=== PATIENT | male | born 1970 | race Asian ===

== ENCOUNTER 2018-05-09 13:19 | Inpatient (IN) | payer SELFPAY ==
[~2018-05-09] VITALS: Ht 170.2 cm; Wt 81.6 kg
[2018-05-09] MEDS ORDERED: MULTIVIT INFUSN,ADULT 4,VIT K 10 ML, THIAMINE INJ 100 MG, FOLIC ACID INJ 1 MG in IV NOR... IV ONE (15:00)
[2018-05-09] MEDS ORDERED: chlordiazePOXIDE HCL 25 MG CAPSULE PO ONE (15:00)
[2018-05-09 15:13] LABS: BASO % 1 % (0-3); EOS % 1 % (0-3); HEMATOCRIT 50.7 % (39.0-53.0); HEMOGLOBIN 17.8 g/dL (13.0-17.5); LYMPH # 0.9 x10^3/uL (1.0-4.8); LYMPH % 25 % (24-48); MEAN CORPUSCULAR HEMOGLOBIN 35 pg (25-35); MEAN CORPUSCULAR HGB CONC 35 g/dL (31-37); MEAN CORPUSCULAR VOLUME 99 fL (79-100); MONO # 0.3 x10^3/uL (0.0-1.1); MONO % 9 % (0-9); NEUT # 2.4 x10^3uL (1.8-7.7); NEUT % 66 % (31-73); PLATELET COUNT 152 x10^3/uL (140-400); RED BLOOD COUNT 5.14 x10^6/uL (4.30-5.70); RED CELL DISTRIBUTION WIDTH 13.5 % (11.5-14.5); WHITE BLOOD COUNT 3.7 x10^3/uL (4.0-11.0)
[2018-05-09 15:20] LABS: CREATININE 0.8 mg/dL (0.7-1.3); GFR 103.2; POTASSIUM 3.4 mmol/L (3.5-5.1)
[2018-05-09 15:25] LABS: ALBUMIN 4.1 g/dL (3.4-5.0); TOTAL BILIRUBIN 1.3 mg/dL (0.2-1.0); TOTAL PROTEIN 8.3 g/dL (6.4-8.2)
[2018-05-09 15:30] LABS: BARBITURATES NEG (NEG); BENZODIAZEPINES NEG (NEG); CANNABINOIDS NEG (NEG); COCAINE NEG (NEG); METHADONE NEG (NEG); OPIATES NEG (NEG); PHENCYCLIDINE NEG (NEG)
[2018-05-09 15:31] LABS: BILIRUBIN,URINE NEGATIVE (NEG); CLARITY,URINE CLEAR; COLOR,URINE YELLOW; NITRITE,URINE NEGATIVE (NEG); PROTEIN,URINE NEGATIVE (NEG-TRACE); UROBILINOGEN,URINE 0.2 mg/dL (0.2 mg/dL)
[2018-05-09 15:32] LABS: AMPHETAMINE/METHAMPHETAMINE NEG (NEG)
[2018-05-09 15:42] LABS: BACTERIA,URINE 0 /HPF (0-FEW); RBC,URINE 0 /HPF (0-2); WBC,URINE 0 /HPF (0-4)
[2018-05-09] MEDS ORDERED: chlordiazePOXIDE HCL 25 MG CAPSULE PO PRN ×2 (16:30)
[2018-05-09] MEDS ORDERED: POTASSIUM CHLORIDE 20 MEQ TABLET.ER. PO ONE (16:30)
[2018-05-09] MEDS ORDERED: ONDANSETRON PF 4 MG/2 ML VIAL. IV PRN ×2 (16:30→17:30)
--- NOTE | 2018-05-09 17:28 | PDOC1 ---
History and Physical Date of Admission Date of Admission 05/09/18 Identification/Chief Complaint Chief Complaint tremors Source Source: Patient History of Present Illness History of Present Illness 47yo M, with HTN, comes for bl ext tremors. He lives in [place], [place], came to visit [facility] here and look for a job here. He drinks 2-3 shots of hard liquor daily, has bl ext tremor which is getting worse in the past 2 ds. last drink is yesterday. He felt hard to walk with the tremors and came to ER. no abd pain or N/V, no seizure. run out of HTN meds. Past Medical History Cardiovascular: HTN Past Surgical History Past Surgical History: No pertinent history Family History Family History: Hypertension Social History Smoke: <1 pack per day ALCOHOL: heavy Drugs: None Current Problem List Problem List Problems Medical Problems: (1) Alcohol withdrawal Status: Acute Current Medications Current Medications Current Medications Medications (Trade) Dose Ordered Sig/Slim Start Time Stop Time Status Last Admin Dose Admin Chlordiazepoxide (Librium) 100 mg PRN Q1HR PRN 05/09/18 16:30 Multivitamins 10 ml/Thiamine HCl 100 mg/Folic Acid 1 mg/Sodium Chloride 1,011.2 ml @ 100 mls/ hr DAILY 05/10/18 09:00 05/14/18 19:07 Ondansetron HCl (Zofran) 4 mg PRN Q8HRS PRN 05/09/18 16:30 05/10/18 16:29 Potassium Chloride (Klor-Con) 40 meq 1X ONCE 05/09/18 16:30 05/09/18 16:31 DC 05/09/18 16:49 40 MEQ Sodium Chloride 1,000 ml @ 125 mls/hr Q8H 05/09/18 16:20 05/10/18 16:19 Allergies Allergies Allergies Coded Allergies Type Severity Reaction Last Updated Verified No Known Drug Allergies 05/09/18 No ROS Review of System CONSTITUTIONAL: No fever or chills EYES: No recent changes SKIN: No rash or itching CARDIOVASCULAR: No chest pain, syncope, palpitations, or edema RESPIRATORY: No SOB or cough GASTROINTESTINAL: No nausea, vomiting or abdominal pain NEUROLOGICAL: No headaches or weakness ENDOCRINE: No cold or heat intolerance GENITOURINARY: No urgency or frequency of urination MUSCULOSKELETAL: No back pain or joint pain LYMPHATICS: No enlarged lymph nodes PSYCHIATRIC: No anxiety or depression Physical Exam Physical Exam GEN.: No apparent distress. Alert and oriented. mild anxious. HEENT: Head is normocephalic, atraumatic NECK: Supple. LUNGS: Clear to auscultation. HEART: RRR, S1, S2 present. Peripheral pulses intact ABDOMEN: Soft, nontender. Positive bowel sounds. EXTREMITIES: Without any cyanosis. bl fingers mild tremors. NEUROLOGIC: Normal speech, normal tone PSYCHIATRIC: Normal affect, normal mood. SKIN: No ulcerations Vitals Vitals Vital Signs Date Time Temp Pulse Resp B/P (MAP) Pulse Ox O2 Delivery O2 Flow Rate FiO2 05/09/18 16:25 92 154/90 (111) 96 Room Air 05/09/18 15:25 21 05/09/18 14:25 97.9 97.9 Labs Labs Laboratory Tests Test 05/09/18 14:50 05/09/18 15:15 05/09/18 16:44 White Blood Count 3.7 x10^3/uL (4.0-11.0) Red Blood Count 5.14 x10^6/uL (4.30-5.70) Hemoglobin 17.8 g/dL (13.0-17.5) Hematocrit 50.7 % (39.0-53.0) Mean Corpuscular Volume 99 fL (79-100) Mean Corpuscular Hemoglobin 35 pg (25-35) Mean Corpuscular Hemoglobin Concent 35 g/dL (31-37) Red Cell Distribution Width 13.5 % (11.5-14.5) Platelet Count 152 x10^3/uL (140-400) Neutrophils (%) (Auto) 66 % (31-73) Lymphocytes (%) (Auto) 25 % (24-48) Monocytes (%) (Auto) 9 % (0-9) Eosinophils (%) (Auto) 1 % (0-3) Basophils (%) (Auto) 1 % (0-3) Neutrophils # (Auto) 2.4 x10^3uL (1.8-7.7) Lymphocytes # (Auto) 0.9 x10^3/uL (1.0-4.8) Monocytes # (Auto) 0.3 x10^3/uL (0.0-1.1) Eosinophils # (Auto) 0.0 x10^3/uL (0.0-0.7) Basophils # (Auto) 0.0 x10^3/uL (0.0-0.2) Sodium Level 136 mmol/L (136-145) Potassium Level 3.4 mmol/L (3.5-5.1) Chloride Level 95 mmol/L (98-107) Carbon Dioxide Level 28 mmol/L (21-32) Anion Gap 13 (6-14) Blood Urea Nitrogen 5 mg/dL (8-26) Creatinine 0.8 mg/dL (0.7-1.3) Estimated GFR (Cockcroft-Gault) 103.2 BUN/Creatinine Ratio 6 (6-20) Glucose Level 139 mg/dL (70-99) Calcium Level 9.0 mg/dL (8.5-10.1) Total Bilirubin 1.3 mg/dL (0.2-1.0) Aspartate Amino Transf (AST/SGOT) 203 U/L (15-37) Alanine Aminotransferase (ALT/SGPT) 119 U/L (16-63) Alkaline Phosphatase 77 U/L (46-116) Total Protein 8.3 g/dL (6.4-8.2) Albumin 4.1 g/dL (3.4-5.0) Albumin/Globulin Ratio 1.0 (1.0-1.7) Ethyl Alcohol Level 44 mg/dL (0-10) Urine Collection Type Unknown Urine Color Yellow Urine Clarity Clear Urine pH 7.0 Urine Specific [place] <=1.005 Urine Protein Negative mg/dL (NEG-TRACE) Urine Glucose (UA) Negative mg/dL (NEG) Urine Ketones (Stick) Negative mg/dL (NEG) Urine Blood Negative (NEG) Urine Nitrite Negative (NEG) Urine Bilirubin Negative (NEG) Urine Urobilinogen Dipstick 0.2 mg/dL (0.2 mg/dL) Urine Leukocyte Esterase Negative (NEG) Urine RBC 0 /HPF (0-2) Urine WBC 0 /HPF (0-4) Urine Bacteria 0 /HPF (0-FEW) Urine Opiates Screen Neg (NEG) Urine Methadone Screen Neg (NEG) Urine Barbiturates Neg (NEG) Urine Phencyclidine Screen Neg (NEG) Urine Amphetamine/Methamphetamine Neg (NEG) Urine Benzodiazepines Screen Neg (NEG) Urine Cocaine Screen Neg (NEG) Urine Cannabinoids Screen Neg (NEG) Urine Ethyl Alcohol Pos (NEG) Ammonia 28 mcmol/L (11-34) Laboratory Tests Test 05/09/18 14:50 05/09/18 15:15 05/09/18 16:44 White Blood Count 3.7 x10^3/uL (4.0-11.0) Red Blood Count 5.14 x10^6/uL (4.30-5.70) Hemoglobin 17.8 g/dL (13.0-17.5) Hematocrit 50.7 % (39.0-53.0) Mean Corpuscular Volume 99 fL (79-100) Mean Corpuscular Hemoglobin 35 pg (25-35) Mean Corpuscular Hemoglobin Concent 35 g/dL (31-37) Red Cell Distribution Width 13.5 % (11.5-14.5) Platelet Count 152 x10^3/uL (140-400) Neutrophils (%) (Auto) 66 % (31-73) Lymphocytes (%) (Auto) 25 % (24-48) Monocytes (%) (Auto) 9 % (0-9) Eosinophils (%) (Auto) 1 % (0-3) Basophils (%) (Auto) 1 % (0-3) Neutrophils # (Auto) 2.4 x10^3uL (1.8-7.7) Lymphocytes # (Auto) 0.9 x10^3/uL (1.0-4.8) Monocytes # (Auto) 0.3 x10^3/uL (0.0-1.1) Eosinophils # (Auto) 0.0 x10^3/uL (0.0-0.7) Basophils # (Auto) 0.0 x10^3/uL (0.0-0.2) Sodium Level 136 mmol/L (136-145) Potassium Level 3.4 mmol/L (3.5-5.1) Chloride Level 95 mmol/L (98-107) Carbon Dioxide Level 28 mmol/L (21-32) Anion Gap 13 (6-14) Blood Urea Nitrogen 5 mg/dL (8-26) Creatinine 0.8 mg/dL (0.7-1.3) Estimated GFR (Cockcroft-Gault) 103.2 BUN/Creatinine Ratio 6 (6-20) Glucose Level 139 mg/dL (70-99) Calcium Level 9.0 mg/dL (8.5-10.1) Total Bilirubin 1.3 mg/dL (0.2-1.0) Aspartate Amino Transf (AST/SGOT) 203 U/L (15-37) Alanine Aminotransferase (ALT/SGPT) 119 U/L (16-63) Alkaline Phosphatase 77 U/L (46-116) Total Protein 8.3 g/dL (6.4-8.2) Albumin 4.1 g/dL (3.4-5.0) Albumin/Globulin Ratio 1.0 (1.0-1.7) Ethyl Alcohol Level 44 mg/dL (0-10) Urine Collection Type Unknown Urine Color Yellow Urine Clarity Clear Urine pH 7.0 Urine Specific [place] <=1.005 Urine Protein Negative mg/dL (NEG-TRACE) Urine Glucose (UA) Negative mg/dL (NEG) Urine Ketones (Stick) Negative mg/dL (NEG) Urine Blood Negative (NEG) Urine Nitrite Negative (NEG) Urine Bilirubin Negative (NEG) Urine Urobilinogen Dipstick 0.2 mg/dL (0.2 mg/dL) Urine Leukocyte Esterase Negative (NEG) Urine RBC 0 /HPF (0-2) Urine WBC 0 /HPF (0-4) Urine Bacteria 0 /HPF (0-FEW) Urine Opiates Screen Neg (NEG) Urine Methadone Screen Neg (NEG) Urine Barbiturates Neg (NEG) Urine Phencyclidine Screen Neg (NEG) Urine Amphetamine/Methamphetamine Neg (NEG) Urine Benzodiazepines Screen Neg (NEG) Urine Cocaine Screen Neg (NEG) Urine Cannabinoids Screen Neg (NEG) Urine Ethyl Alcohol Pos (NEG) Ammonia 28 mcmol/L (11-34) VTE Prophylaxis Ordered VTE Prophylaxis Devices: Yes VTE Pharmacological Prophylaxi: Yes Assessment/Plan Assessment/Plan alcoholism alcohol withdrawal with bl fingers tremors hypokalemia smoker ELEvated transaminitis with alcoholic hepatitis HTN accelerated plan: ivf, FA, VITB1 libirium 25mg q6h and prn, ativan prn replete K dvt ppx check Mag ABd US PTOT CASEY SINHA MD May 09, 2018 17:28
[2018-05-09] MEDS ORDERED: MORPHINE SULFATE 4 MG/ML VIAL. IV PRN (17:30)
[2018-05-09] MEDS ORDERED: DOCUSATE SODIUM 100 MG CAPSULE. PO PRN (17:30)
[2018-05-09] MEDS ORDERED: IV NORMAL SALINE 1000ML BAG 1,000 ML IV SCH (17:30)
[2018-05-09] MEDS ORDERED: ACETAMINOPHEN 325 MG TABLET. PO PRN (17:30)
[2018-05-09] MEDS ORDERED: hydrALAZINE 20 MG/ML VIAL. IVP PRN (17:30)
[2018-05-09] MEDS: chlordiazePOXIDE HCL 25 MG CAPSULE PO SCH ×2 (17:48→23:09)
[2018-05-09] MEDS: CARVEDILOL 6.25 MG TABLET. PO SCH (17:50)
[2018-05-09] MEDS: IV NORMAL SALINE 1000ML BAG 1,000 ML IV SCH ×2 (17:50→23:10)
--- NOTE | 2018-05-09 18:03 | NUR ---
The patient, ALEK OWUSU, 47 y/o, M admitted by CASEY SINHA MD, was given written information regarding hospital policies, unit procedures and contact persons. Valuables were checked and left with patient. pt with noticeable tremors in both arms/hands. pt states he stopped taking his librium a few days ago and quit drinking yesterday. claims to only drink 2-3 shots a day. oriented to room and call light. bed alarm on. IVF infusing. will monitor
[2018-05-09 19:00] VITALS: BP 154/99
--- NOTE | 2018-05-09 19:00 | PHYS DOC ---
Past Medical History Past Medical History: Anxiety, Depression, Other Additional Past Medical Histor: etoh Past Surgical History: No Surgical History Alcohol Use: Heavy Drug Use: None Adult General Chief Complaint Chief Complaint: TREMORS HPI HPI Patient is a 47 year old male who presents with tremors to his hands and feet 1 day. The patient states that he is a very heavy drinker. He states that he is trying to get off of alcohol. He states that his tremors have made it impossible to even hold a glass of water. He states that he has also had having anxiety and depression around his drinking. He is originally from [place] and states that he would like to go back to that area. He has been living with his brother in [facility] but has been unable to find a job here. He does not know if he has ever had seizure activity related to his detox but does have tremors within several hours of not drinking alcohol. He states that his last drink was yesterday. Review of Systems Review of Systems Constitutional: Denies fever or chills [] Eyes: Denies change in visual acuity, redness, or eye pain [] HENT: Denies nasal congestion or sore throat [] Respiratory: Denies cough or shortness of breath [] Cardiovascular: No additional information not addressed in HPI [] GI: Denies abdominal pain, nausea, vomiting, bloody stools or diarrhea [] : Denies dysuria or hematuria [] Musculoskeletal: See history of present illness Integument: Denies rash or skin lesions [] Neurologic: Denies headache, focal weakness or sensory changes [] Endocrine: Denies polyuria or polydipsia [] All other systems were reviewed and found to be within normal limits, except as documented in this note. Current Medications Current Medications Current Medications Medications (Trade) Dose Ordered Sig/Slim Start Time Stop Time Status Last Admin Dose Admin Chlordiazepoxide (Librium) 25 mg 1X ONCE 05/09/18 15:00 05/09/18 15:01 DC 05/09/18 15:00 25 MG Multivitamins 10 ml/Thiamine HCl 100 mg/Folic Acid 1 mg/Sodium Chloride 1,011.2 ml @ 1,000.088 mls/hr 1X ONCE 05/09/18 15:00 05/09/18 16:00 DC 05/09/18 15:00 1,000.088 MLS/HR Allergies Allergies Allergies Coded Allergies Type Severity Reaction Last Updated Verified No Known Drug Allergies 05/09/18 No Physical Exam Physical Exam Constitutional: Well developed, well nourished, no acute distress, non-toxic appearance. [] HENT: Normocephalic, atraumatic, bilateral external ears normal, oropharynx moist, no oral exudates, nose normal. [] Eyes: PERRLA, EOMI, conjunctiva normal, no discharge. [] Neck: Normal range of motion, no tenderness, supple, no stridor. [] Cardiovascular:Heart rate regular rhythm, no murmur [] Lungs & Thorax: Bilateral breath sounds clear to auscultation [] Abdomen: Bowel sounds normal, soft, no tenderness, no masses, no pulsatile masses. [] Skin: Warm, dry, no erythema, no rash. [] Back: No tenderness, no CVA tenderness. [] Extremities: No tenderness, no cyanosis, no clubbing, ROM intact, no edema, strong tremors present. [] Neurologic: Alert and oriented X 3, normal motor function, normal sensory function, no focal deficits noted. [] Psychologic: Affect normal, judgement normal, mood anxious and tearful. [] Current Patient Data Vital Signs Vital Signs Date Time Temp Pulse Resp B/P (MAP) Pulse Ox O2 Delivery O2 Flow Rate FiO2 05/09/18 15:25 98 21 156/94 (114) 96 Room Air 05/09/18 14:25 97.9 97.9 Lab Values Laboratory Tests Test 05/09/18 14:50 05/09/18 15:15 White Blood Count 3.7 x10^3/uL (4.0-11.0) L Red Blood Count 5.14 x10^6/uL (4.30-5.70) Hemoglobin 17.8 g/dL (13.0-17.5) H Hematocrit 50.7 % (39.0-53.0) Mean Corpuscular Volume 99 fL (79-100) Mean Corpuscular Hemoglobin 35 pg (25-35) Mean Corpuscular Hemoglobin Concent 35 g/dL (31-37) Red Cell Distribution Width 13.5 % (11.5-14.5) Platelet Count 152 x10^3/uL (140-400) Neutrophils (%) (Auto) 66 % (31-73) Lymphocytes (%) (Auto) 25 % (24-48) Monocytes (%) (Auto) 9 % (0-9) Eosinophils (%) (Auto) 1 % (0-3) Basophils (%) (Auto) 1 % (0-3) Neutrophils # (Auto) 2.4 x10^3uL (1.8-7.7) Lymphocytes # (Auto) 0.9 x10^3/uL (1.0-4.8) L Monocytes # (Auto) 0.3 x10^3/uL (0.0-1.1) Eosinophils # (Auto) 0.0 x10^3/uL (0.0-0.7) Basophils # (Auto) 0.0 x10^3/uL (0.0-0.2) Sodium Level 136 mmol/L (136-145) Potassium Level 3.4 mmol/L (3.5-5.1) L Chloride Level 95 mmol/L (98-107) L Carbon Dioxide Level 28 mmol/L (21-32) Anion Gap 13 (6-14) Blood Urea Nitrogen 5 mg/dL (8-26) L Creatinine 0.8 mg/dL (0.7-1.3) Estimated GFR (Cockcroft-Gault) 103.2 BUN/Creatinine Ratio 6 (6-20) Glucose Level 139 mg/dL (70-99) H Calcium Level 9.0 mg/dL (8.5-10.1) Total Bilirubin 1.3 mg/dL (0.2-1.0) H Aspartate Amino Transferase (AST) 203 U/L (15-37) H Alanine Aminotransferase (ALT) 119 U/L (16-63) H Alkaline Phosphatase 77 U/L (46-116) Total Protein 8.3 g/dL (6.4-8.2) H Albumin 4.1 g/dL (3.4-5.0) Albumin/Globulin Ratio 1.0 (1.0-1.7) Ethyl Alcohol Level 44 mg/dL (0-10) H Urine Collection Type Unknown Urine Color Yellow Urine Clarity Clear Urine pH 7.0 Urine Specific [place] <=1.005 Urine Protein Negative mg/dL (NEG-TRACE) Urine Glucose (UA) Negative mg/dL (NEG) Urine Ketones (Stick) Negative mg/dL (NEG) Urine Blood Negative (NEG) Urine Nitrite Negative (NEG) Urine Bilirubin Negative (NEG) Urine Urobilinogen Dipstick 0.2 mg/dL (0.2 mg/dL) Urine Leukocyte Esterase Negative (NEG) Urine RBC 0 /HPF (0-2) Urine WBC 0 /HPF (0-4) Urine Bacteria 0 /HPF (0-FEW) Urine Opiates Screen Neg (NEG) Urine Methadone Screen Neg (NEG) Urine Barbiturates Neg (NEG) Urine Phencyclidine Screen Neg (NEG) Urine Amphetamine/Methamphetamine Neg (NEG) Urine Benzodiazepines Screen Neg (NEG) Urine Cocaine Screen Neg (NEG) Urine Cannabinoids Screen Neg (NEG) Urine Ethyl Alcohol Pos (NEG) Laboratory Tests 05/09/18 14:50 Laboratory Tests 05/09/18 14:50 EKG EKG [] Radiology/Procedures Radiology/Procedures [] Course & Med Decision Making Course & Med Decision Making Pertinent Labs and Imaging studies reviewed. (See chart for details) []The patient was screened by the psychiatric assessment team. He would be on a waiting list for proximally 6-8 weeks to enter into alcohol rehabilitation in this area. He states that he would prefer to be admitted here for short-term withdrawal treatment and return to [place]. Dr. Gibson has accepted him to her service. Dragon Disclaimer Dragon Disclaimer This electronic medical record was generated, in whole or in part, using a voice recognition dictation system. Departure Departure Impression: Primary Impression: Alcohol withdrawal Disposition: ADMITTED INPATIENT Admitting Physician: Xie. Castillo Condition: CHEIKH ORTIZ APRN May 09, 2018 19:00
[2018-05-09] MEDS ORDERED: CHLO25CA9 PO (19:06)
[2018-05-09] MEDS ORDERED: MAGNESIUM SULFATE 2GM 50 ML IV ONE (19:30)
[2018-05-09] MEDS: traMADol 50 MG TABLET PO PRN (19:43)
[2018-05-09] MEDS: ENOXAPARIN 40 MG/0.4 ML SYRINGE. SQ SCH (20:46)
[2018-05-09 23:00] VITALS: BP 134/93
[2018-05-10 03:00] VITALS: BP 150/93
[2018-05-10] MEDS: chlordiazePOXIDE HCL 25 MG CAPSULE PO SCH ×3 (06:07→17:53)
[2018-05-10 07:40] VITALS: BP 145/100
[2018-05-10 07:49] LABS: CALCIUM 8.2 mg/dL (8.5-10.1); CREATININE 0.8 mg/dL (0.7-1.3); GFR 103.2; POTASSIUM 3.5 mmol/L (3.5-5.1)
[2018-05-10 08:04] LABS: ALBUMIN 3.6 g/dL (3.4-5.0); DIRECT BILIRUBIN 0.7 mg/dL (0.0-0.2); TOTAL BILIRUBIN 2.5 mg/dL (0.2-1.0); TOTAL PROTEIN 7.6 g/dL (6.4-8.2)
[2018-05-10 08:28] LABS: BASO % 2 % (0-3); EOS # 0.1 x10^3/uL (0.0-0.7); EOS % 4 % (0-3); HEMOGLOBIN 16.8 g/dL (13.0-17.5); LYMPH # 0.8 x10^3/uL (1.0-4.8); LYMPH % 30 % (24-48); MEAN CORPUSCULAR HEMOGLOBIN 35 pg (25-35); MEAN CORPUSCULAR HGB CONC 35 g/dL (31-37); MEAN CORPUSCULAR VOLUME 99 fL (79-100); MONO # 0.2 x10^3/uL (0.0-1.1); MONO % 8 % (0-9); NEUT # 1.6 x10^3uL (1.8-7.7); NEUT % 57 % (31-73); PLATELET COUNT 129 x10^3/uL (140-400); RED BLOOD COUNT 4.87 x10^6/uL (4.30-5.70); RED CELL DISTRIBUTION WIDTH 13.1 % (11.5-14.5); WHITE BLOOD COUNT 2.8 x10^3/uL (4.0-11.0)
--- NOTE | 2018-05-10 08:30 | RAD ---
CLINICAL HISTORY: HIGH LFTS, ETOH DETOX COMPARISON: None available. TECHNIQUE: Limited ultrasound examination of the right upper quadrant of the abdomen was performed FINDINGS: Liver: The liver measures 20.2 cm in length in the right mid clavicular line. . Hepatic margin is smooth. Increased echogenicity of the liver relative to the right kidney consistent with hepatic steatosis. There is no focal abnormality of the liver. Portal vein is grossly patent. Gallbladder/Biliary: The gallbladder is normal in appearance without evidence for cholelithiasis. There is no wall thickening or pericholecystic fluid. There is no pain with direct transducer pressure over the gallbladder.The common bile duct measures 0.5 cm. The right kidney measures 11.7 cm in bipolar length. No focal renal lesion or hydronephrosis. Normal renal cortical echogenicity. Visualized pancreas is unremarkable. Visualized aorta and IVC are also unremarkable. There is no free fluid in the subhepatic space. IMPRESSION: 1. Hepatomegaly and hepatic steatosis. 2. Gallbladder is unremarkable. Electronically signed by: Vinicio Melgar MD (05/10/2018 8:26 AM) [facility]
[2018-05-10] MEDS ORDERED: MULTIVIT INFUSN,ADULT 4,VIT K 10 ML, THIAMINE INJ 100 MG, FOLIC ACID INJ 1 MG in IV NOR... IV SCH (09:00)
[2018-05-10] MEDS: THIAMINE 100 MG TABLET. PO SCH (09:59)
[2018-05-10] MEDS: traMADol 50 MG TABLET PO PRN ×2 (09:59→17:55)
[2018-05-10] MEDS: CARVEDILOL 6.25 MG TABLET. PO SCH ×2 (09:59→17:53)
[2018-05-10] MEDS: FOLIC ACID 1 MG TABLET. PO SCH (10:00)
[2018-05-10] MEDS: IV NORMAL SALINE 1000ML BAG 1,000 ML IV SCH (10:03)
[2018-05-10 11:33] VITALS: BP 137/96
[2018-05-10 15:20] VITALS: BP 116/85
[2018-05-10 19:30] VITALS: BP 129/91
[2018-05-10] MEDS: ENOXAPARIN 40 MG/0.4 ML SYRINGE. SQ SCH (22:01)
--- NOTE | 2018-05-10 23:10 | PDOC ---
PROGRESS NOTES History of Present Illness History of Present Illness alcoholism alcohol withdrawal with bl fingers tremors hypokalemia smoker ELEvated transaminitis with alcoholic hepatitis HTN accelerated plan: ivf, FA, VITB1 libirium 25mg q6h and prn, ativan prn replete K dvt ppx improving Vitals Vitals Vital Signs Date Time Temp Pulse Resp B/P (MAP) Pulse Ox O2 Delivery O2 Flow Rate FiO2 05/10/18 19:50 Room Air 05/10/18 19:30 97.7 74 18 129/91 (104) 94 97.7 Labs LABS Laboratory Tests Test 05/10/18 06:58 White Blood Count 2.8 x10^3/uL (4.0-11.0) Red Blood Count 4.87 x10^6/uL (4.30-5.70) Hemoglobin 16.8 g/dL (13.0-17.5) Hematocrit 48.0 % (39.0-53.0) Mean Corpuscular Volume 99 fL (79-100) Mean Corpuscular Hemoglobin 35 pg (25-35) Mean Corpuscular Hemoglobin Concent 35 g/dL (31-37) Red Cell Distribution Width 13.1 % (11.5-14.5) Platelet Count 129 x10^3/uL (140-400) Neutrophils (%) (Auto) 57 % (31-73) Lymphocytes (%) (Auto) 30 % (24-48) Monocytes (%) (Auto) 8 % (0-9) Eosinophils (%) (Auto) 4 % (0-3) Basophils (%) (Auto) 2 % (0-3) Neutrophils # (Auto) 1.6 x10^3uL (1.8-7.7) Lymphocytes # (Auto) 0.8 x10^3/uL (1.0-4.8) Monocytes # (Auto) 0.2 x10^3/uL (0.0-1.1) Eosinophils # (Auto) 0.1 x10^3/uL (0.0-0.7) Basophils # (Auto) 0.0 x10^3/uL (0.0-0.2) Sodium Level 135 mmol/L (136-145) Potassium Level 3.5 mmol/L (3.5-5.1) Chloride Level 98 mmol/L (98-107) Carbon Dioxide Level 29 mmol/L (21-32) Anion Gap 8 (6-14) Blood Urea Nitrogen 5 mg/dL (8-26) Creatinine 0.8 mg/dL (0.7-1.3) Estimated GFR (Cockcroft-Gault) 103.2 Glucose Level 105 mg/dL (70-99) Calcium Level 8.2 mg/dL (8.5-10.1) Total Bilirubin 2.5 mg/dL (0.2-1.0) Direct Bilirubin 0.7 mg/dL (0.0-0.2) Aspartate Amino Transf (AST/SGOT) 185 U/L (15-37) Alanine Aminotransferase (ALT/SGPT) 112 U/L (16-63) Alkaline Phosphatase 75 U/L (46-116) Total Protein 7.6 g/dL (6.4-8.2) Albumin 3.6 g/dL (3.4-5.0) Assessment and Plan Assessmemt and Plan Problems Medical Problems: (1) Alcohol withdrawal Status: Acute Comment Review of Relevant I have reviewed the following items doug (where applicable) has been applied. Labs Laboratory Tests Test 05/09/18 14:50 05/09/18 15:15 05/09/18 16:44 05/10/18 06:58 White Blood Count 3.7 x10^3/uL (4.0-11.0) 2.8 x10^3/uL (4.0-11.0) Red Blood Count 5.14 x10^6/uL (4.30-5.70) 4.87 x10^6/uL (4.30-5.70) Hemoglobin 17.8 g/dL (13.0-17.5) 16.8 g/dL (13.0-17.5) Hematocrit 50.7 % (39.0-53.0) 48.0 % (39.0-53.0) Mean Corpuscular Volume 99 fL (79-100) 99 fL (79-100) Mean Corpuscular Hemoglobin 35 pg (25-35) 35 pg (25-35) Mean Corpuscular Hemoglobin Concent 35 g/dL (31-37) 35 g/dL (31-37) Red Cell Distribution Width 13.5 % (11.5-14.5) 13.1 % (11.5-14.5) Platelet Count 152 x10^3/uL (140-400) 129 x10^3/uL (140-400) Neutrophils (%) (Auto) 66 % (31-73) 57 % (31-73) Lymphocytes (%) (Auto) 25 % (24-48) 30 % (24-48) Monocytes (%) (Auto) 9 % (0-9) 8 % (0-9) Eosinophils (%) (Auto) 1 % (0-3) 4 % (0-3) Basophils (%) (Auto) 1 % (0-3) 2 % (0-3) Neutrophils # (Auto) 2.4 x10^3uL (1.8-7.7) 1.6 x10^3uL (1.8-7.7) Lymphocytes # (Auto) 0.9 x10^3/uL (1.0-4.8) 0.8 x10^3/uL (1.0-4.8) Monocytes # (Auto) 0.3 x10^3/uL (0.0-1.1) 0.2 x10^3/uL (0.0-1.1) Eosinophils # (Auto) 0.0 x10^3/uL (0.0-0.7) 0.1 x10^3/uL (0.0-0.7) Basophils # (Auto) 0.0 x10^3/uL (0.0-0.2) 0.0 x10^3/uL (0.0-0.2) Sodium Level 136 mmol/L (136-145) 135 mmol/L (136-145) Potassium Level 3.4 mmol/L (3.5-5.1) 3.5 mmol/L (3.5-5.1) Chloride Level 95 mmol/L (98-107) 98 mmol/L (98-107) Carbon Dioxide Level 28 mmol/L (21-32) 29 mmol/L (21-32) Anion Gap 13 (6-14) 8 (6-14) Blood Urea Nitrogen 5 mg/dL (8-26) 5 mg/dL (8-26) Creatinine 0.8 mg/dL (0.7-1.3) 0.8 mg/dL (0.7-1.3) Estimated GFR (Cockcroft-Gault) 103.2 103.2 BUN/Creatinine Ratio 6 (6-20) Glucose Level 139 mg/dL (70-99) 105 mg/dL (70-99) Calcium Level 9.0 mg/dL (8.5-10.1) 8.2 mg/dL (8.5-10.1) Total Bilirubin 1.3 mg/dL (0.2-1.0) 2.5 mg/dL (0.2-1.0) Aspartate Amino Transf (AST/SGOT) 203 U/L (15-37) 185 U/L (15-37) Alanine Aminotransferase (ALT/SGPT) 119 U/L (16-63) 112 U/L (16-63) Alkaline Phosphatase 77 U/L (46-116) 75 U/L (46-116) Total Protein 8.3 g/dL (6.4-8.2) 7.6 g/dL (6.4-8.2) Albumin 4.1 g/dL (3.4-5.0) 3.6 g/dL (3.4-5.0) Albumin/Globulin Ratio 1.0 (1.0-1.7) Ethyl Alcohol Level 44 mg/dL (0-10) Urine Collection Type Unknown Urine Color Yellow Urine Clarity Clear Urine pH 7.0 Urine Specific [place] <=1.005 Urine Protein Negative mg/dL (NEG-TRACE) Urine Glucose (UA) Negative mg/dL (NEG) Urine Ketones (Stick) Negative mg/dL (NEG) Urine Blood Negative (NEG) Urine Nitrite Negative (NEG) Urine Bilirubin Negative (NEG) Urine Urobilinogen Dipstick 0.2 mg/dL (0.2 mg/dL) Urine Leukocyte Esterase Negative (NEG) Urine RBC 0 /HPF (0-2) Urine WBC 0 /HPF (0-4) Urine Bacteria 0 /HPF (0-FEW) Urine Opiates Screen Neg (NEG) Urine Methadone Screen Neg (NEG) Urine Barbiturates Neg (NEG) Urine Phencyclidine Screen Neg (NEG) Urine Amphetamine/Methamphetamine Neg (NEG) Urine Benzodiazepines Screen Neg (NEG) Urine Cocaine Screen Neg (NEG) Urine Cannabinoids Screen Neg (NEG) Urine Ethyl Alcohol Pos (NEG) Magnesium Level 1.5 mg/dL (1.8-2.4) Ammonia 28 mcmol/L (11-34) Direct Bilirubin 0.7 mg/dL (0.0-0.2) Laboratory Tests Test 05/10/18 06:58 White Blood Count 2.8 x10^3/uL (4.0-11.0) Red Blood Count 4.87 x10^6/uL (4.30-5.70) Hemoglobin 16.8 g/dL (13.0-17.5) Hematocrit 48.0 % (39.0-53.0) Mean Corpuscular Volume 99 fL (79-100) Mean Corpuscular Hemoglobin 35 pg (25-35) Mean Corpuscular Hemoglobin Concent 35 g/dL (31-37) Red Cell Distribution Width 13.1 % (11.5-14.5) Platelet Count 129 x10^3/uL (140-400) Neutrophils (%) (Auto) 57 % (31-73) Lymphocytes (%) (Auto) 30 % (24-48) Monocytes (%) (Auto) 8 % (0-9) Eosinophils (%) (Auto) 4 % (0-3) Basophils (%) (Auto) 2 % (0-3) Neutrophils # (Auto) 1.6 x10^3uL (1.8-7.7) Lymphocytes # (Auto) 0.8 x10^3/uL (1.0-4.8) Monocytes # (Auto) 0.2 x10^3/uL (0.0-1.1) Eosinophils # (Auto) 0.1 x10^3/uL (0.0-0.7) Basophils # (Auto) 0.0 x10^3/uL (0.0-0.2) Sodium Level 135 mmol/L (136-145) Potassium Level 3.5 mmol/L (3.5-5.1) Chloride Level 98 mmol/L (98-107) Carbon Dioxide Level 29 mmol/L (21-32) Anion Gap 8 (6-14) Blood Urea Nitrogen 5 mg/dL (8-26) Creatinine 0.8 mg/dL (0.7-1.3) Estimated GFR (Cockcroft-Gault) 103.2 Glucose Level 105 mg/dL (70-99) Calcium Level 8.2 mg/dL (8.5-10.1) Total Bilirubin 2.5 mg/dL (0.2-1.0) Direct Bilirubin 0.7 mg/dL (0.0-0.2) Aspartate Amino Transf (AST/SGOT) 185 U/L (15-37) Alanine Aminotransferase (ALT/SGPT) 112 U/L (16-63) Alkaline Phosphatase 75 U/L (46-116) Total Protein 7.6 g/dL (6.4-8.2) Albumin 3.6 g/dL (3.4-5.0) Medications Current Medications Chlordiazepoxide (Librium) 25 mg 1X ONCE PO Last administered on 05/09/18at 15: 00; Start 05/09/18 at 15:00; Stop 05/09/18 at 15:01; Status DC Multivitamins 10 ml/Thiamine HCl 100 mg/Folic Acid 1 mg/Sodium Chloride 1,011.2 ml @ 1,000.088 mls/hr 1X ONCE IV Last administered on 05/09/18at 15:00; Start 05/09/18 at 15:00; Stop 05/09/18 at 16:00; Status DC Ondansetron HCl (Zofran) 4 mg PRN Q8HRS PRN IV NAUSEA/VOMITING; Start 05/09/18 at 16:30; Stop 05/10/18 at 16:05; Status DC Sodium Chloride 1,000 ml @ 125 mls/hr Q8H IV Last administered on 05/10/18at 10 :03; Start 05/09/18 at 16:20; Stop 05/10/18 at 16:19; Status DC Potassium Chloride (Klor-Con) 40 meq 1X ONCE PO Last administered on at 16:49; Start 05/09/18 at 16:30; Stop 05/09/18 at 16:31; Status DC Multivitamins 10 ml/Thiamine HCl 100 mg/Folic Acid 1 mg/Sodium Chloride 1,011.2 ml @ 100 mls/ hr DAILY IV ; Start 05/10/18 at 09:00; Stop 05/10/18 at 09:00; Status DC Chlordiazepoxide (Librium) 50 mg PRN Q1HR PRN PO For CIWA 8-14; Start 05/09/18 at 16:30 Chlordiazepoxide (Librium) 100 mg PRN Q1HR PRN PO For CIWA 15 or greater; Start 05/09/18 at 16:30 Acetaminophen (Tylenol) 650 mg PRN Q6HRS PRN PO FEVER; Start 05/09/18 at 17:30 Ondansetron HCl (Zofran) 4 mg PRN Q6HRS PRN IV NAUSEA/VOMITING; Start 05/09/18 at 17:30 Morphine Sulfate (Morphine Sulfate) 2 mg PRN Q2HR PRN IV MODERATE TO SEVERE PAIN; Start 05/09/18 at 17:30 Tramadol HCl (Ultram) 50 mg PRN Q6HRS PRN PO MILD TO MODERATE PAIN Last administered on 05/10/18at 17:55; Start 05/09/18 at 17:30 Hydralazine HCl (Apresoline Inj) 10 mg PRN Q4HRS PRN IVP ELEVATED BP, SEE COMMENTS; Start 05/09/18 at 17:30 Docusate Sodium (Colace) 100 mg PRN DAILY PRN PO CONSTIPATION; Start 05/09/18 at 17:30 Chlordiazepoxide (Librium) 25 mg Q6HRS PO Last administered on 05/10/18at 17:53 ; Start 05/09/18 at 18:00 Folic Acid (Folic Acid) 1 mg DAILY PO Last administered on 05/10/18at 10:00; Start 05/10/18 at 09:00 Thiamine Mononitrate (Vitamin B-1) 100 mg DAILY PO Last administered on at 09:59; Start 05/10/18 at 09:00 Sodium Chloride 1,000 ml @ 75 mls/hr [id number] IV ; Start 05/09/18 at 17:30; Stop 05/09/18 at 17:30; Status DC Enoxaparin Sodium (Lovenox 40mg Syringe) 40 mg Q24H SQ Last administered on at 22:01; Start 05/09/18 at 21:00 Carvedilol (Coreg) 6.25 mg BIDWMEALS PO Last administered on 05/10/18at 17:53; Start 05/09/18 at 18:00 Lorazepam (Ativan) 2 mg PRN Q4HRS PRN IV ANXIETY / AGITATION; Start 05/09/18 at 17:30 Magnesium Sulfate 50 ml @ 25 mls/hr 1X ONCE IV Last administered on 05/09/18at 19:34; Start 05/09/18 at 19:30; Stop 05/09/18 at 21:29; Status DC Active Scripts Active Reported Chlordiazepoxide Hcl 25 Mg Capsule 25 Mg PO BID Vitals/I & O Vital Sign - Last 24 Hours 05/10/18 05/10/18 05/10/18 05/10/18 03:00 07:40 08:00 09:59 Temp 98.0 98.6 98.0 98.6 Pulse 77 114 114 Resp B/P (MAP) 150/93 (112) 145/100 (115) 145/100 Pulse Ox 97 94 O2 Delivery Room Air Room Air Room Air 05/10/18 05/10/18 05/10/18 05/10/18 11:33 15:20 17:53 19:30 Temp 98.3 98.0 97.7 98.3 98.0 97.7 Pulse 105 95 95 74 Resp B/P (MAP) 137/96 (110) 116/85 (95) 116/85 129/91 (104) Pulse Ox 94 97 94 O2 Delivery Room Air Room Air Room Air 05/10/18 19:50 O2 Delivery Room Air Intake and Output 05/09/18 05/09/18 05/10/18 15:01 23:01 07:01 Intake Total 50 ml 1000 ml Output Total 800 ml Balance -750 ml 1000 ml SAE WILDER MD May 10, 2018 23:10
[2018-05-10 23:30] VITALS: BP 122/84
[2018-05-11] MEDS: chlordiazePOXIDE HCL 25 MG CAPSULE PO SCH ×3 (00:24→12:00)
[2018-05-11 03:30] VITALS: BP 113/80
[2018-05-11 07:44] VITALS: BP 118/86
[2018-05-11] MEDS: THIAMINE 100 MG TABLET. PO SCH (08:38)
[2018-05-11] MEDS: FOLIC ACID 1 MG TABLET. PO SCH (08:39)
[2018-05-11] MEDS: CARVEDILOL 6.25 MG TABLET. PO SCH ×2 (08:39→17:52)
[2018-05-11 11:11] VITALS: BP 110/78
--- NOTE | 2018-05-11 12:21 | PDOC ---
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 If doing well in am - ok to dc Vitals Vitals Vital Signs Date Time Temp Pulse Resp B/P (MAP) Pulse Ox O2 Delivery O2 Flow Rate FiO2 05/11/18 11:11 98.1 86 18 110/78 (89) 98 Room Air 98.1 Labs LABS Laboratory Tests Test 05/11/18 08:23 Magnesium Level 2.0 mg/dL (1.8-2.4) Assessment and Plan Assessmemt and Plan Problems Medical Problems: (1) Alcohol withdrawal Status: Acute Comment Review of Relevant I have reviewed the following items doug (where applicable) has been applied. Labs Laboratory Tests Test 05/09/18 14:50 05/09/18 15:15 05/09/18 16:44 05/10/18 06:58 White Blood Count 3.7 x10^3/uL (4.0-11.0) 2.8 x10^3/uL (4.0-11.0) Red Blood Count 5.14 x10^6/uL (4.30-5.70) 4.87 x10^6/uL (4.30-5.70) Hemoglobin 17.8 g/dL (13.0-17.5) 16.8 g/dL (13.0-17.5) Hematocrit 50.7 % (39.0-53.0) 48.0 % (39.0-53.0) Mean Corpuscular Volume 99 fL (79-100) 99 fL (79-100) Mean Corpuscular Hemoglobin 35 pg (25-35) 35 pg (25-35) Mean Corpuscular Hemoglobin Concent 35 g/dL (31-37) 35 g/dL (31-37) Red Cell Distribution Width 13.5 % (11.5-14.5) 13.1 % (11.5-14.5) Platelet Count 152 x10^3/uL (140-400) 129 x10^3/uL (140-400) Neutrophils (%) (Auto) 66 % (31-73) 57 % (31-73) Lymphocytes (%) (Auto) 25 % (24-48) 30 % (24-48) Monocytes (%) (Auto) 9 % (0-9) 8 % (0-9) Eosinophils (%) (Auto) 1 % (0-3) 4 % (0-3) Basophils (%) (Auto) 1 % (0-3) 2 % (0-3) Neutrophils # (Auto) 2.4 x10^3uL (1.8-7.7) 1.6 x10^3uL (1.8-7.7) Lymphocytes # (Auto) 0.9 x10^3/uL (1.0-4.8) 0.8 x10^3/uL (1.0-4.8) Monocytes # (Auto) 0.3 x10^3/uL (0.0-1.1) 0.2 x10^3/uL (0.0-1.1) Eosinophils # (Auto) 0.0 x10^3/uL (0.0-0.7) 0.1 x10^3/uL (0.0-0.7) Basophils # (Auto) 0.0 x10^3/uL (0.0-0.2) 0.0 x10^3/uL (0.0-0.2) Sodium Level 136 mmol/L (136-145) 135 mmol/L (136-145) Potassium Level 3.4 mmol/L (3.5-5.1) 3.5 mmol/L (3.5-5.1) Chloride Level 95 mmol/L (98-107) 98 mmol/L (98-107) Carbon Dioxide Level 28 mmol/L (21-32) 29 mmol/L (21-32) Anion Gap 13 (6-14) 8 (6-14) Blood Urea Nitrogen 5 mg/dL (8-26) 5 mg/dL (8-26) Creatinine 0.8 mg/dL (0.7-1.3) 0.8 mg/dL (0.7-1.3) Estimated GFR (Cockcroft-Gault) 103.2 103.2 BUN/Creatinine Ratio 6 (6-20) Glucose Level 139 mg/dL (70-99) 105 mg/dL (70-99) Calcium Level 9.0 mg/dL (8.5-10.1) 8.2 mg/dL (8.5-10.1) Total Bilirubin 1.3 mg/dL (0.2-1.0) 2.5 mg/dL (0.2-1.0) Aspartate Amino Transf (AST/SGOT) 203 U/L (15-37) 185 U/L (15-37) Alanine Aminotransferase (ALT/SGPT) 119 U/L (16-63) 112 U/L (16-63) Alkaline Phosphatase 77 U/L (46-116) 75 U/L (46-116) Total Protein 8.3 g/dL (6.4-8.2) 7.6 g/dL (6.4-8.2) Albumin 4.1 g/dL (3.4-5.0) 3.6 g/dL (3.4-5.0) Albumin/Globulin Ratio 1.0 (1.0-1.7) Ethyl Alcohol Level 44 mg/dL (0-10) Urine Collection Type Unknown Urine Color Yellow Urine Clarity Clear Urine pH 7.0 Urine Specific [place] <=1.005 Urine Protein Negative mg/dL (NEG-TRACE) Urine Glucose (UA) Negative mg/dL (NEG) Urine Ketones (Stick) Negative mg/dL (NEG) Urine Blood Negative (NEG) Urine Nitrite Negative (NEG) Urine Bilirubin Negative (NEG) Urine Urobilinogen Dipstick 0.2 mg/dL (0.2 mg/dL) Urine Leukocyte Esterase Negative (NEG) Urine RBC 0 /HPF (0-2) Urine WBC 0 /HPF (0-4) Urine Bacteria 0 /HPF (0-FEW) Urine Opiates Screen Neg (NEG) Urine Methadone Screen Neg (NEG) Urine Barbiturates Neg (NEG) Urine Phencyclidine Screen Neg (NEG) Urine Amphetamine/Methamphetamine Neg (NEG) Urine Benzodiazepines Screen Neg (NEG) Urine Cocaine Screen Neg (NEG) Urine Cannabinoids Screen Neg (NEG) Urine Ethyl Alcohol Pos (NEG) Magnesium Level 1.5 mg/dL (1.8-2.4) Ammonia 28 mcmol/L (11-34) Direct Bilirubin 0.7 mg/dL (0.0-0.2) Test 05/11/18 08:23 Magnesium Level 2.0 mg/dL (1.8-2.4) Laboratory Tests Test 05/11/18 08:23 Magnesium Level 2.0 mg/dL (1.8-2.4) Medications Current Medications Chlordiazepoxide (Librium) 25 mg 1X ONCE PO Last administered on 05/09/18at 15: 00; Start 05/09/18 at 15:00; Stop 05/09/18 at 15:01; Status DC Multivitamins 10 ml/Thiamine HCl 100 mg/Folic Acid 1 mg/Sodium Chloride 1,011.2 ml @ 1,000.088 mls/hr 1X ONCE IV Last administered on 05/09/18at 15:00; Start 05/09/18 at 15:00; Stop 05/09/18 at 16:00; Status DC Ondansetron HCl (Zofran) 4 mg PRN Q8HRS PRN IV NAUSEA/VOMITING; Start 05/09/18 at 16:30; Stop 05/10/18 at 16:05; Status DC Sodium Chloride 1,000 ml @ 125 mls/hr Q8H IV Last administered on 05/10/18at 10 :03; Start 05/09/18 at 16:20; Stop 05/10/18 at 16:19; Status DC Potassium Chloride (Klor-Con) 40 meq 1X ONCE PO Last administered on at 16:49; Start 05/09/18 at 16:30; Stop 05/09/18 at 16:31; Status DC Multivitamins 10 ml/Thiamine HCl 100 mg/Folic Acid 1 mg/Sodium Chloride 1,011.2 ml @ 100 mls/ hr DAILY IV ; Start 05/10/18 at 09:00; Stop 05/10/18 at 09:00; Status DC Chlordiazepoxide (Librium) 50 mg PRN Q1HR PRN PO For CIWA 8-14; Start 05/09/18 at 16:30 Chlordiazepoxide (Librium) 100 mg PRN Q1HR PRN PO For CIWA 15 or greater; Start 05/09/18 at 16:30 Acetaminophen (Tylenol) 650 mg PRN Q6HRS PRN PO FEVER; Start 05/09/18 at 17:30 Ondansetron HCl (Zofran) 4 mg PRN Q6HRS PRN IV NAUSEA/VOMITING; Start 05/09/18 at 17:30 Morphine Sulfate (Morphine Sulfate) 2 mg PRN Q2HR PRN IV MODERATE TO SEVERE PAIN; Start 05/09/18 at 17:30 Tramadol HCl (Ultram) 50 mg PRN Q6HRS PRN PO MILD TO MODERATE PAIN Last administered on 05/10/18at 17:55; Start 05/09/18 at 17:30 Hydralazine HCl (Apresoline Inj) 10 mg PRN Q4HRS PRN IVP ELEVATED BP, SEE COMMENTS; Start 05/09/18 at 17:30 Docusate Sodium (Colace) 100 mg PRN DAILY PRN PO CONSTIPATION; Start 05/09/18 at 17:30 Chlordiazepoxide (Librium) 25 mg Q6HRS PO Last administered on 05/11/18at 05:47 ; Start 05/09/18 at 18:00; Stop 05/11/18 at 12:17; Status DC Folic Acid (Folic Acid) 1 mg DAILY PO Last administered on 05/11/18at 08:39; Start 05/10/18 at 09:00 Thiamine Mononitrate (Vitamin B-1) 100 mg DAILY PO Last administered on at 08:38; Start 05/10/18 at 09:00 Sodium Chloride 1,000 ml @ 75 mls/hr [id number] IV ; Start 05/09/18 at 17:30; Stop 05/09/18 at 17:30; Status DC Enoxaparin Sodium (Lovenox 40mg Syringe) 40 mg Q24H SQ Last administered on at 22:01; Start 05/09/18 at 21:00 Carvedilol (Coreg) 6.25 mg BIDWMEALS PO Last administered on 05/11/18at 08:39; Start 05/09/18 at 18:00 Lorazepam (Ativan) 2 mg PRN Q4HRS PRN IV ANXIETY / AGITATION; Start 05/09/18 at 17:30 Magnesium Sulfate 50 ml @ 25 mls/hr 1X ONCE IV Last administered on 05/09/18at 19:34; Start 05/09/18 at 19:30; Stop 05/09/18 at 21:29; Status DC Chlordiazepoxide (Librium) 25 mg Q6HRS PRN PO shakes/agtation; Start 05/11/18 at 12:30; Status UNV Active Scripts Active Reported Chlordiazepoxide Hcl 25 Mg Capsule 25 Mg PO BID Vitals/I & O Vital Sign - Last 24 Hours 05/10/18 05/10/18 05/10/18 05/10/18 15:20 17:53 19:30 19:50 Temp 98.0 97.7 98.0 97.7 Pulse 95 95 74 Resp 18 18 B/P (MAP) 116/85 (95) 116/85 129/91 (104) Pulse Ox 97 94 O2 Delivery Room Air Room Air Room Air 05/10/18 05/10/18 05/11/18 05/11/18 20:00 23:30 03:30 07:44 Temp 98.3 98.2 98.6 98.3 98.2 98.6 Pulse 70 71 95 Resp 18 18 B/P (MAP) 122/84 (97) 113/80 (91) 118/86 (97) Pulse Ox 97 98 95 O2 Delivery Room Air Room Air Room Air Room Air 05/11/18 05/11/18 05/11/18 08:00 08:39 11:11 Temp 98.1 98.1 Pulse 95 86 Resp 18 B/P (MAP) 118/86 110/78 (89) Pulse Ox 98 O2 Delivery Room Air Room Air Intake and Output 05/10/18 05/10/18 05/11/18 15:01 23:01 07:01 Intake Total 700 ml 500 ml 700 ml Output Total 600 ml Balance 100 ml 500 ml 700 ml SAE WILDER MD May 11, 2018 12:21
[2018-05-11] MEDS ORDERED: chlordiazePOXIDE HCL 25 MG CAPSULE PO PRN (12:30)
[2018-05-11 13:04] LABS: HEMATOCRIT 46.6 % (39.0-53.0); HEMOGLOBIN 16.4 g/dL (13.0-17.5); RED BLOOD COUNT 4.71 x10^6/uL (4.30-5.70); RED CELL DISTRIBUTION WIDTH 13.6 % (11.5-14.5); WHITE BLOOD COUNT 3.8 x10^3/uL (4.0-11.0)
[2018-05-11 13:06] LABS: ALBUMIN 3.7 g/dL (3.4-5.0); ALBUMIN/GLOBULIN RATIO 1.1 (1.0-1.7); CALCIUM 8.5 mg/dL (8.5-10.1); CREATININE 0.8 mg/dL (0.7-1.3); GFR 103.2; POTASSIUM 3.6 mmol/L (3.5-5.1); TOTAL BILIRUBIN 1.8 mg/dL (0.2-1.0); TOTAL PROTEIN 7.2 g/dL (6.4-8.2)
[2018-05-11 15:24] VITALS: BP 112/73
[2018-05-11 19:15] VITALS: BP 115/78
[2018-05-11] MEDS: ENOXAPARIN 40 MG/0.4 ML SYRINGE. SQ SCH (20:07)
[2018-05-11 23:15] VITALS: BP 122/79
[2018-05-12 03:20] VITALS: BP 115/76
[2018-05-12 07:35] VITALS: BP 124/88
[2018-05-12] MEDS: THIAMINE 100 MG TABLET. PO SCH (08:59)
[2018-05-12] MEDS: FOLIC ACID 1 MG TABLET. PO SCH (09:00)
[2018-05-12] MEDS: CARVEDILOL 6.25 MG TABLET. PO SCH (09:00)
[2018-05-12 11:00] VITALS: BP 115/87
[2018-05-12] MEDS ORDERED: CARV6.2511 PO (13:10)
[2018-05-12] MEDS ORDERED: THIA100T22 PO (13:10)
[2018-05-12] MEDS ORDERED: FOLI1TAB16 PO (13:10)
--- NOTE | 2018-05-12 13:13 | PDOC3 ---
Discharge Summary Visit Information Date of Admission: May 09, 2018 Date of Discharge: May 12, 2018 Admitting Diagnosis Comment: alcohol dependence Fatty liver Final Diagnosis Problems Medical Problems: (1) Alcohol withdrawal Status: Acute Brief Hospital Course Allergies Allergies Coded Allergies Type Severity Reaction Last Updated Verified No Known Drug Allergies 05/09/18 No Vital Signs Vital Signs Date Time Temp Pulse Resp B/P (MAP) Pulse Ox O2 Delivery O2 Flow Rate FiO2 05/12/18 11:00 98.9 67 18 115/87 (96) 98 Room Air 98.9 Lab Results Laboratory Tests Test 05/11/18 08:23 White Blood Count 3.8 x10^3/uL (4.0-11.0) Red Blood Count 4.71 x10^6/uL (4.30-5.70) Hemoglobin 16.4 g/dL (13.0-17.5) Hematocrit 46.6 % (39.0-53.0) Mean Corpuscular Volume 99 fL (79-100) Mean Corpuscular Hemoglobin 35 pg (25-35) Mean Corpuscular Hemoglobin Concent 35 g/dL (31-37) Red Cell Distribution Width 13.6 % (11.5-14.5) Platelet Count 126 x10^3/uL (140-400) Sodium Level 133 mmol/L (136-145) Potassium Level 3.6 mmol/L (3.5-5.1) Chloride Level 98 mmol/L (98-107) Carbon Dioxide Level 28 mmol/L (21-32) Anion Gap 7 (6-14) Blood Urea Nitrogen 7 mg/dL (8-26) Creatinine 0.8 mg/dL (0.7-1.3) Estimated GFR (Cockcroft-Gault) 103.2 BUN/Creatinine Ratio 9 (6-20) Glucose Level 146 mg/dL (70-99) Calcium Level 8.5 mg/dL (8.5-10.1) Magnesium Level 2.0 mg/dL (1.8-2.4) Total Bilirubin 1.8 mg/dL (0.2-1.0) Aspartate Amino Transf (AST/SGOT) 212 U/L (15-37) Alanine Aminotransferase (ALT/SGPT) 136 U/L (16-63) Alkaline Phosphatase 76 U/L (46-116) Total Protein 7.2 g/dL (6.4-8.2) Albumin 3.7 g/dL (3.4-5.0) Albumin/Globulin Ratio 1.1 (1.0-1.7) Brief Hospital Course Mr. Grey is a 47 old male who can speak Romanian, alcoholic, admitted because of alcohol withdrawal symptoms with alcohol levels of 44. Elevated total bili 1.8 with elevated LFTs, leukopenia 3.8. Also some of the liver shows fatty liver. Now stable. Rx Librium I have on chart. Gait steady, medically ready. I think he is interested in being sober Consults performed none Procedures performed none Time discharging less than 30 minutes Discharge Information Condition at Discharge: Improved, Stable Disposition/Orders: D/C to Home Scheduled Carvedilol (Carvedilol ) 6.25 Mg Tablet, 6.25 MG PO BIDWMEALS for htn MDD 1, # 60 Prescribed by: DEBORAH SAMS on 05/12/18 1310 Chlordiazepoxide Hcl (Chlordiazepoxide Hcl) 25 Mg Capsule, 25 MG PO BID for anxiety, (Reported) Entered as Reported by: ANDREY LEO on 05/09/181905 Last Taken: Unknown Dose on 05/01/18 Last Action: New Order on 05/09/181905 by ANDREY LEO Folic Acid (Folic Acid) 1 Mg Tablet, 1 MG PO DAILY for mvi MDD 1, #30 Prescribed by: DEBORAH SAMS on 05/12/18 1310 Thiamine Mononitrate (Vitamin B-1) 100 Mg Tablet, 100 MG PO DAILY for mvi MDD 1 , #30 Prescribed by: DEBORAH SAMS on 05/12/18 1310 DEBORAH SAMS MD May 12, 2018 13:13
--- NOTE | 2018-05-12 13:41 | NUR ---
Discharge Note: [facility] Discharge instructions and discharge home medications reviewed with Patient and a copy given. All questions have been answered and understanding verbalized. The following instructions and handouts were given: Check BP and HR daily, F/U with PCP within two weeks. Discontinued lines and drains: Peripheral IV intact. Patient discharged to Home or Self Care with Friend via [facility].
== END 2018-05-12 13:45 | disposition home or self-care (01) | DRG 897 ==
LOC: ER 13:19 → 6 SOUTH 16:15
PROVIDERS: ADMIT Internal Medicine; ATTEND Internal Medicine
PROC: HZ2ZZZZ Detoxification Services for Substance Abuse Treatment (ICD-10-PCS; principal; 2018-05-09)
DX: F10.239 Alcohol dependence with withdrawal, unspecified (principal); E87.6 Hypokalemia; K70.10 Alcoholic hepatitis without ascites; F41.9 Anxiety disorder, unspecified; F32.9 Major depressive disorder, single episode, unspecified; I10 Essential (primary) hypertension; F17.210 Nicotine dependence, cigarettes, uncomplicated; K76.0 Fatty (change of) liver, not elsewhere classified; D72.819 Decreased white blood cell count, unspecified; Y90.2 Blood alcohol level of 40-59 mg/100 ml; Z82.49 Family history of ischemic heart disease and other diseases of the circulatory system
CPT/HCPCS: 36415; 76705; 80048; 80053; 80076; 80307; 81001; 82140; 83735; 85025; 85027; 96365; 96366; G0480; J1650; J3475; J7030; 99285-25